=== PATIENT | male | born 1975 | race Caucasian/White ===

== ENCOUNTER → 2017-10-14 18:05 | Outpatient (REF) | payer MEDICARE, MEDICAID, SELFPAY | LOC: LAB 18:05 | PROVIDERS: Family Provider Physician Assistant; PCP Physician Assistant; Visit Provider Internal Medicine | DX: N39.0 Urinary tract infection, site not specified (principal) | CPT/HCPCS: 87077; 87086; 87186 ==

== ENCOUNTER → 2019-01-29 13:18 | Outpatient (CLI) | payer MEDICARE, MEDICAID, SELFPAY ==
--- NOTE | 2019-01-29 | DI.US.S_ITS ---
PROCEDURE: US RENAL COMPLETE INDICATIONS: URINARY TRACT INFECTION TECHNIQUE: Real-time scanning was performed of the kidneys and bladder, with image documentation. COMPARISON: CT, CHEST/ABD/PELVIS W/CON (PNL), 05/04/2011, 0:37. US, RETROPERITONEAL SONOGRAM, 06/25/2013, 16:27. FINDINGS: Kidneys: Kidneys are normal in size. Right kidney measures 12.7 cm long; left kidney measures 11.8 cm long. Right renal cortical thickness is 1.7 cm; left renal cortical thickness is 1.2 cm. Renal cortical echotexture is normal. No hydronephrosis or nephrolithiasis. No suspicious solid mass lesions. Bladder: Urinary bladder decompressed and suboptimally visualized. Miscellaneous: No free pelvic fluid. IMPRESSION: 1. Grossly normal appearance of the kidneys bilaterally. Dictated by: Tad VOGT Interpreted: Kamlesh Win MD on 01/29/2019 at 16:06 Approved by: Kamlesh Win M.D. on 01/29/2019 at 16:42
== END ==
PROVIDERS: PCP Internal Medicine; Visit Provider Urology
DX: N39.0 Urinary tract infection, site not specified (principal)
CPT/HCPCS: 76770